=== PATIENT | male | born 1965 | race Caucasian/White ===

== ENCOUNTER 2020-02-13 11:28 | Emergency (ER) | payer OTHER ==
[~2020-02-13] VITALS: Ht 172.7 cm; Wt 86.6 kg
[2020-02-13 12:31] VITALS: Ht 172.7 cm; Wt 86.6 kg
[2020-02-13 14:48] VITALS: BP 153/95
== END 2020-02-13 14:48 | disposition home or self-care (01) ==
LOC: ED 11:28
DX: R10.33 Periumbilical pain (principal); E11.9 Type 2 diabetes mellitus without complications; E78.00 Pure hypercholesterolemia, unspecified; Z88.0 Allergy status to penicillin